=== PATIENT | female | born 1950 | race Caucasian/White ===

== ENCOUNTER 2017-04-26 08:35 | Outpatient (CLI) | payer BC, MEDICARE ==
[2017-04-26] MEDS ORDERED: Iopamidol 370 76% 100 ML VIAL ONE (09:00)
--- NOTE | 2017-04-26 12:27 | CT ---
CT ABDOMEN AND PELVIS WITH ORAL AND IV CONTRAST: Date; 04/26/17 ISTORY: Left lower quadrant pain. FINDINGS: The lung bases are clear. The liver, spleen, pancreas, adrenal glands, and kidneys are normal. No ajay cified gallstones are seen. There is no evidence of aneurysmal dilatation of the abdominal aorta. The re are mild degenerative changes in the spine. No free air, free fluid, or lymphadenopathy identified in the abdomen or pelvis. The small bowel loop s are not abnormally dilated. There is sigmoid diverticulosis. No pericolonic inflammatory change are seen. No abnormally loculated fluid collections are identified to suggest abscess formation. The pat ient is post hysterectomy and appendectomy. IMPRESSION: Sigmoid diverticulosis. POS: EM
== END 2017-04-26 08:36 | disposition home or self-care (01) ==
LOC: SCSCT 08:35
PROVIDERS: ATTEND Family Medicine
DX: R10.32 Left lower quadrant pain (principal); K57.30 Diverticulosis of large intestine without perforation or abscess without bleeding
CPT/HCPCS: 74177; 82565